=== PATIENT | female | born 1940 | race Caucasian/White ===

== ENCOUNTER 2025-06-30 13:17 | Day surgery (SDC) | payer MEDICARE, OTHER ==
[2025-06-30] MEDS ORDERED: LIDOCAINE HCL 1% 50 MG/5 ML VL IJ ONE (13:18)
[2025-06-30] MEDS ORDERED: Sodium Chloride 0.9(Preservative Free) 10 ML IJ ONE (13:18)
[2025-06-30] MEDS ORDERED: methylPREDNISolone acetate IM ONE (13:18)
[2025-06-30] MEDS ORDERED: Lactated Ringers 1,000 ML IV ONE (15:55)
--- NOTE | 2025-06-30 20:02 | XRAY ---
Indication: Caudal FLO. Intraoperative fluoroscopy provided for 22 seconds. 3 digital spot image submitted for interpretation demonstrates caudal needle tip projecting mid sacrum. Small amount of contrast injected for needle tip placement. Correlate with intraoperative findings/report.
--- NOTE | 2025-07-01 09:18 | XRAY ---
22 seconds of fluoroscopy was used in surgery for a caudal FLO.
== END 2025-06-30 16:10 ==
LOC: SDC-PAIN 13:17
PROVIDERS: ATTEND Psychiatry & Neurology Pain Medicine
DX: M54.16 Radiculopathy, lumbar region (principal)